=== PATIENT | female | born 1970 | race Caucasian/White ===

== ENCOUNTER 2016-07-10 00:22 | Emergency (ER) | payer MEDICAID ==
[2016-03-25 16:10] VITALS: BMI 32.3
[~2016-07-10 00:22] MED LIST: AMBIEN10 MG PO; BACTRIM DS TABL1 TAB PO; DIFLUCAN200 MG PO; EFFEXOR XR150 MG PO; GABAPENTIN100 MG PO; HYDROCODONE-APA1 TAB PO; IBUPROFEN600 MG PO; KLONOPIN1 MG PO; LITHIUM CARBON300 MG PO; LUNESTA3 MG PO; NEURONTIN 300300 MG PO; NEXIUM40 MG PO; NYSTATIN ORAL SU5 ML PO; OXYCODONE HCL5 MG PO; PERCOCET 5-3251 TAB PO; SEROQUEL300 MG PO; SOMA350 MG PO; VALIUM5 MG PO; ZANAFLEX4 MG PO
== END 2016-07-10 01:28 | disposition home or self-care (01) ==
LOC: D.ER 00:22
DX: R00.2 Palpitations (principal); R19.7 Diarrhea, unspecified; F31.9 Bipolar disorder, unspecified; D25.9 Leiomyoma of uterus, unspecified; F17.200 Nicotine dependence, unspecified, uncomplicated

== ENCOUNTER 2016-08-30 17:08 | Emergency (ER) | payer MEDICAID ==
[2016-03-25 16:10] VITALS: BMI 32.3
[2016-08-30 18:37] LABS: BASOPHILS 0.3 % (0.0-2.0); EOSINOPHILS 5.8 % (0-7); HEMATOCRIT 42.9 % (36.0-48.0); HEMOGLOBIN 13.9 g/dL (12-16); IMMATURE GRANULOCYTES 0.4 % (0-5); LYMPHOCYTES 31.4 % (15-50); MCH 28.3 pg (26.0-34.0); MCHC 32.4 g/dL (31.0-37.0); MCV 87.2 fL (80.0-100.0); MEAN PLATELET VOLUME 10.9 fL (7.4-10.4); MONOCYTES 6.7 % (2-11); NEUTROPHILS 55.4 % (40-80); PLATELET COUNT 203 10x3/uL (130-400); RBC 4.92 10x6/uL (4.00-5.40); RDW 13.9 % (11.5-14.5)
[2016-08-30 18:52] LABS: ALBUMIN 3.2 g/dL (3.4-5.0); ALKALINE PHOSPHATASE 95 U/L (46-116); ALT (SGPT) 44 U/L (10-68); CALC OSMOLALITY 279 mosm/kg (275-300); CALCIUM 8.2 mg/dL (8.5-10.1); CARBON DIOXIDE 23.8 mmol/L (21.0-32.0); CHLORIDE - SERUM 108 mmol/L (98-107); CREATININE - SERUM 0.8 mg/dL (0.6-1.3); GLUCOSE 123 mg/dL (74-106); POTASSIUM - SERUM 4.7 mmol/L (3.5-5.1); PROTEIN - SERUM 6.7 g/dL (6.4-8.2); SODIUM 141 mmol/L (136-145); UREA NITROGEN 6 mg/dL (7-18); eGFR NON AFRICAN AMERICAN 82 mL/min (90-120)
[2016-08-30 18:53] LABS: BILIRUBIN - TOTAL 0.09 mg/dL (0.2-1.3)
[2016-08-30 20:24] LABS: APPEARANCE CLEAR (CLEAR); BILIRUBIN NEGATIVE (NEGATIVE); COLOR YELLOW (YELLOW); GLUCOSE NEGATIVE (NEGATIVE); KETONE NEGATIVE (NEGATIVE); LEUKOCYTE ESTERASE NEGATIVE (NEGATIVE); NITRITE NEGATIVE (NEGATIVE); PROTEIN NEGATIVE (NEGATIVE); UROBILINOGEN NORMAL (NORMAL)
== END 2016-08-30 20:15 | disposition home or self-care (01) ==
LOC: D.ER 17:08
PROVIDERS: Emergency Medicine
DX: R10.9 Unspecified abdominal pain (principal); R19.7 Diarrhea, unspecified; F31.9 Bipolar disorder, unspecified; K51.90 Ulcerative colitis, unspecified, without complications; D25.9 Leiomyoma of uterus, unspecified; F17.200 Nicotine dependence, unspecified, uncomplicated

== ENCOUNTER → 2016-09-10 10:26 | Outpatient (CLI) | payer MEDICAID ==
[2016-03-25 16:10] VITALS: BMI 32.3
== END | disposition home or self-care (01) ==
LOC: D.US 10:26
DX: R10.84 Generalized abdominal pain (principal); R19.7 Diarrhea, unspecified

== ENCOUNTER → 2016-10-22 14:55 | Outpatient (CLI) | payer MEDICAID ==
[2016-03-25 16:10] VITALS: BMI 32.3
[2016-10-22 15:53] LABS: ALBUMIN 3.6 g/dL (3.4-5.0); BILIRUBIN - INDIRECT 0.17 mg/dL (0.00-1.00); BILIRUBIN - TOTAL 0.22 mg/dL (0.2-1.3); PROTEIN - SERUM 7.1 g/dL (6.4-8.2)
[2016-10-22 15:56] LABS: BILIRUBIN - DIRECT 0.05 mg/dL (0.00-0.30)
== END | disposition home or self-care (01) ==
LOC: D.LAB 14:55
PROVIDERS: Internal Medicine Gastroenterology
DX: R11.2 Nausea with vomiting, unspecified (principal); R10.84 Generalized abdominal pain; R19.7 Diarrhea, unspecified; R19.5 Other fecal abnormalities

== ENCOUNTER → 2016-11-26 10:59 | Outpatient (CLI) | payer MEDICAID ==
[2016-03-25 16:10] VITALS: BMI 32.3
== END | disposition home or self-care (01) ==
LOC: D.NM 10:59
DX: R14.3 Flatulence (principal); R14.0 Abdominal distension (gaseous)

== ENCOUNTER 2016-12-11 06:10 | Day surgery (SDC) | payer MEDICAID ==
[2016-12-10 10:49] LABS: HEMATOCRIT 42.2 % (36.0-48.0); HEMOGLOBIN 13.7 g/dL (12-16); MCH 28.2 pg (26.0-34.0); MCHC 32.5 g/dL (31.0-37.0); RBC 4.85 10x6/uL (4.00-5.40); RDW 13.9 % (11.5-14.5); WBC 9.8 10x3/uL (4.8-10.8)
[2016-12-10 10:54] LABS: ANION GAP 12.4 mmol/L (8-16); CALCIUM 8.5 mg/dL (8.5-10.1); CARBON DIOXIDE 26.5 mmol/L (21.0-32.0); CREATININE - SERUM 0.9 mg/dL (0.6-1.3); POTASSIUM - SERUM 4.9 mmol/L (3.5-5.1)
[~2016-12-11] VITALS: Ht 167.6 cm; Wt 83.0 kg
[~2016-12-11 06:10] MED LIST changes: +LEVOTHYROXINE50 MCG PO; -SEROQUEL300 MG PO; +SEROQUEL400 MG PO
[2016-12-11 08:00] VITALS: BP 107/79; Ht 167.6 cm; Wt 83.0 kg
[2016-12-11] MEDS ORDERED: HYDROCODON-ACE1 EAC7 PO (11:30)
== END 2016-12-11 15:45 | disposition home or self-care (01) ==
LOC: D.OPS 06:10 → D.PAN 10:45 → D.OPS 15:45
PROVIDERS: Anesthesiology
DX: K81.1 Chronic cholecystitis (principal); Z01.812 Encounter for preprocedural laboratory examination

== ENCOUNTER → 2017-04-01 08:26 | Outpatient (CLI) | payer MEDICAID ==
[2016-12-11 08:00] VITALS: BMI 29.6
[~2017-04-01 08:26] MED LIST changes: +HYDROCODON-ACE1 EAC7 PO
== END | disposition home or self-care (01) ==
LOC: D.RAD 08:26
DX: R10.9 Unspecified abdominal pain (principal); R19.7 Diarrhea, unspecified; K31.84 Gastroparesis

== ENCOUNTER → 2017-06-05 08:01 | Outpatient (CLI) | payer MEDICAID ==
[2016-12-11 08:00] VITALS: BMI 29.6
[2017-06-05 08:49] LABS: ALBUMIN 3.3 g/dL (3.4-5.0); BILIRUBIN - DIRECT 0.02 mg/dL (0.00-0.30); BILIRUBIN - INDIRECT 0.12 mg/dL (0.00-1.00); BILIRUBIN - TOTAL 0.14 mg/dL (0.2-1.3); PROTEIN - SERUM 6.4 g/dL (6.4-8.2)
== END | disposition home or self-care (01) ==
LOC: D.LAB 08:01
PROVIDERS: Internal Medicine Gastroenterology
DX: R19.7 Diarrhea, unspecified (principal)

== ENCOUNTER → 2017-06-10 08:12 | Outpatient (CLI) | payer MEDICAID ==
[2016-12-11 08:00] VITALS: BMI 29.6
[2017-06-13 19:11] LABS: 5HIAA - 24HR 3.4 mg/24 hr (0.0-14.9); 5HIAA - UR 5.4 mg/L (Undefined)
== END | disposition home or self-care (01) ==
LOC: D.LABREF 08:12
PROVIDERS: Internal Medicine Gastroenterology
DX: R19.7 Diarrhea, unspecified (principal)

== ENCOUNTER → 2017-06-17 09:38 | Outpatient (CLI) | payer MEDICAID ==
[2016-12-11 08:00] VITALS: BMI 29.6
== END | disposition home or self-care (01) ==
LOC: D.NM 09:38
DX: R19.7 Diarrhea, unspecified (principal)

== ENCOUNTER 2017-09-15 06:33 | Day surgery (SDC) | payer MEDICAID ==
[~2017-09-15] VITALS: Ht 167.6 cm; Wt 76.2 kg
[2017-09-15 07:23] VITALS: BP 121/50; Ht 167.6 cm; Wt 76.2 kg
[2017-09-15 07:55] LABS: HEMATOCRIT 39.6 % (36.0-48.0); HEMOGLOBIN 12.9 g/dL (12-16); MCH 28.9 pg (26.0-34.0); MCHC 32.6 g/dL (31.0-37.0); MCV 88.8 fL (80.0-100.0); MEAN PLATELET VOLUME 10.5 fL (7.4-10.4); RBC 4.46 10x6/uL (4.00-5.40); RDW 13.8 % (11.5-14.5); WBC 7.2 10x3/uL (4.8-10.8)
[2017-09-15 08:24] LABS: CALC OSMOLALITY 281 mosm/kg (275-300); CALCIUM 8.5 mg/dL (8.5-10.1); CARBON DIOXIDE 26.6 mmol/L (21.0-32.0); CHLORIDE - SERUM 107 mmol/L (98-107); CREATININE - SERUM 0.8 mg/dL (0.6-1.3); GLUCOSE 94 mg/dL (74-106); SODIUM 142 mmol/L (136-145); UREA NITROGEN 11 mg/dL (7-18); eGFR NON AFRICAN AMERICAN 82 mL/min (90-120)
[2017-09-15] MEDS ORDERED: CYCLOBENZAPRINE10 MG PO (09:10)
[2017-09-15] MEDS ORDERED: HYDROCODON-ACE1 EAC7 PO (09:10)
== END 2017-09-15 11:20 | disposition home or self-care (01) ==
LOC: D.OPS 06:33 → D.PAN 08:00 → D.OPS 08:15 → D.PAN 08:30 → D.OPS 11:20
PROVIDERS: Anesthesiology
DX: K43.2 Incisional hernia without obstruction or gangrene (principal); E03.9 Hypothyroidism, unspecified; F17.200 Nicotine dependence, unspecified, uncomplicated; R10.9 Unspecified abdominal pain; Z01.812 Encounter for preprocedural laboratory examination

== ENCOUNTER 2017-12-18 13:19 | Day surgery (SDC) | payer MEDICAID ==
[~2017-12-18] VITALS: Ht 167.6 cm; Wt 72.7 kg
--- NOTE | ~2017-12-18 | OP ---
PATIENT NAME: KJ MONTES MEDICAL RECORD: [id number] :74 LOCATION:[facility] ADMISSION DATE: SURGEON: ANDRES BAR MD DATE OF OPERATION: 12/18/2017 PROCEDURE: EGD with fecal microbial transplant. INDICATIONS: Ms. Montes is a very pleasant 47-year-old woman with history of chronic pancreatitis and chronic diarrhea. She has had an extensive workup for her diarrhea in the past including 24-hour urine collection for 5'HIAA, octreotide scan, EGD, colonoscopy, small bowel series; all of which have been nondiagnostic, negative. She has been on a trial of Creon without any changes in her diarrhea. She has had extensive weight loss. She presents for outpatient fecal microbial transplant. PREMEDICATIONS: Total IV anesthesia (propofol 300 mg), bipolar disorder. INSTRUMENT: Olympus video colonoscope, pediatric. PROCEDURE AND FINDINGS: After receiving informed consent, Ms. Montes's posterior pharynx was anesthetized with Cetacaine spray. She was placed in left lateral decubitus position and sedated as per anesthesia. After achieving an adequate level of sedation, the colonoscope was introduced per orally and advanced into the jejunum without difficulty. At 110 cm, 60 cc of fecal transplant material was deployed and then three 60 cc water flushes followed. The colonoscope was withdrawn. The esophageal, gastric, and duodenojejunal mucosa appeared normal. Ms. Montes tolerated the procedure well. No immediate complications. ASSESSMENT: 1. Normal-appearing esophagus, stomach, and proximal small bowel. 2. Post-fecal microbial transplant. 3. Chronic diarrhea. RECOMMENDATIONS: 1. Avoid antibiotic therapy in the next 6 months unless absolutely needed. 2. Probiotics. TRANSINT:[id number] Voice Confirmation ID: [id number] DOCUMENT ID: [id number] CC: Kaitlyn Martínez APN, [facility]. ANDRES BAR MD at 1832 CC: [id number] DICTATION DATE: 12/18/17 1613 SYSTEMS DESIGNER: 12/18/17 1638 [facility] 12/18/17 [place] [id number]
[~2017-12-18 13:19] MED LIST changes: +CYCLOBENZAPRINE10 MG PO
[2017-12-18 14:00] LABS: HEMATOCRIT 48.7 % (36.0-48.0); HEMOGLOBIN 16.5 g/dL (12-16); MCH 29.2 pg (26.0-34.0); MCHC 33.9 g/dL (31.0-37.0); MEAN PLATELET VOLUME 10.9 fL (7.4-10.4); RBC 5.66 10x6/uL (4.00-5.40); RDW 13.5 % (11.5-14.5); WBC 10.9 10x3/uL (4.8-10.8)
[2017-12-18 14:15] VITALS: BP 104/79; Ht 167.6 cm; Wt 72.7 kg
[2017-12-18 14:25] LABS: ANION GAP 9.1 mmol/L (8-16); CALCIUM 8.5 mg/dL (8.5-10.1); CREATININE - SERUM 0.9 mg/dL (0.6-1.3); POTASSIUM - SERUM 4.1 mmol/L (3.5-5.1)
== END 2017-12-18 16:41 | disposition home or self-care (01) ==
LOC: D.OPS 13:19
PROVIDERS: Internal Medicine Gastroenterology
DX: K52.9 Noninfective gastroenteritis and colitis, unspecified (principal); E11.9 Type 2 diabetes mellitus without complications; F17.200 Nicotine dependence, unspecified, uncomplicated
CPT/HCPCS: 43235; G0455

== ENCOUNTER → 2018-01-09 08:22 | Outpatient (CLI) | payer MEDICAID ==
[2017-12-18 14:15] VITALS: BMI 25.8
[~2018-01-09 08:22] MED LIST changes: +CIPRO500 MG PO; +DILAUDID4 MG PO; +FLOMAX0.4 MG PO; +NORCO 5/325 TAB1 TAB PO; +TYLENOL W/CODEI1 TAB PO; +ZOFRAN ODT4 MG/UDTAB PO
[2018-01-12 12:12] LABS: ANTIGLIADIN IGA 16 units (0-19); ANTIGLIADIN IGG 2 units (0-19)
[2018-01-13 06:16] LABS: ENDOMYSIAL ANTIBODY IGA Negative (Negative)
[2018-01-15 20:08] LABS: OVA + PARASITE EXAM Final report (())
== END | disposition home or self-care (01) ==
LOC: D.LAB 08:22 → D.CT 16:30
PROVIDERS: Internal Medicine Gastroenterology
DX: R10.9 Unspecified abdominal pain (principal); R19.7 Diarrhea, unspecified

== ENCOUNTER 2018-01-28 13:32 | Emergency (ER) | payer MEDICAID ==
[~2018-01-28] VITALS: Ht 167.6 cm; Wt 77.3 kg
[~2018-01-28 13:32] MED LIST changes: -CIPRO500 MG PO; -DILAUDID4 MG PO; -FLOMAX0.4 MG PO; -NORCO 5/325 TAB1 TAB PO; -TYLENOL W/CODEI1 TAB PO; -ZOFRAN ODT4 MG/UDTAB PO
[2018-01-28 13:49] VITALS: Ht 167.6 cm; Wt 77.3 kg
[2018-01-28 14:20] LABS: BASOPHILS 0.4 % (0-2); HEMATOCRIT 40.5 % (36.0-48.0); HEMOGLOBIN 13.6 g/dL (12-16); IMMATURE GRANULOCYTES 0.3 % (0-5); LYMPHOCYTES 17.5 % (15-50); MCH 29.2 pg (26.0-34.0); MCHC 33.6 g/dL (31.0-37.0); MCV 86.9 fL (80.0-100.0); MEAN PLATELET VOLUME 10.4 fL (7.4-10.4); MONOCYTES 7.9 % (2-11); NEUTROPHILS 70.9 % (40-80); PLATELET COUNT 235 10x3/uL (130-400); RBC 4.66 10x6/uL (4.00-5.40); RDW 14.5 % (11.5-14.5); WBC 10.9 10x3/uL (4.8-10.8)
[2018-01-28 14:35] LABS: ALBUMIN 2.9 g/dL (3.4-5.0); ANION GAP 12.6 mmol/L (8-16); CALCIUM 7.9 mg/dL (8.5-10.1); CARBON DIOXIDE 24.6 mmol/L (21.0-32.0); CREATININE - SERUM 1.3 mg/dL (0.6-1.3); POTASSIUM - SERUM 4.2 mmol/L (3.5-5.1); PROTEIN - SERUM 6.3 g/dL (6.4-8.2)
[2018-01-28 14:36] LABS: BILIRUBIN - TOTAL 0.1 mg/dL (0.2-1.3)
[2018-01-28 15:07] LABS: APPEARANCE HAZY (CLEAR); BILIRUBIN NEGATIVE (NEGATIVE); COLOR YELLOW (YELLOW); GLUCOSE NEGATIVE (NEGATIVE); KETONE NEGATIVE (NEGATIVE); NITRITE NEGATIVE (NEGATIVE); PROTEIN NEGATIVE (NEGATIVE); UROBILINOGEN NORMAL (NORMAL)
[2018-01-28 15:09] LABS: RED CELLS - URINE 0-5 /hpf (0-5); WHITE CELLS - URINE 0-5 /hpf (0-5)
[2018-01-28 15:11] LABS: BACTERIA MODERATE /hpf (NONE SEEN)
[2018-01-28] MEDS ORDERED: ZOFRAN ODT4 MG/UDTAB PO (17:21)
[2018-01-28] MEDS ORDERED: CIPRO500 MG PO (17:21)
[2018-01-28] MEDS ORDERED: TYLENOL W/CODEI1 TAB PO (17:21)
[2018-01-28] MEDS ORDERED: FLOMAX0.4 MG PO (17:21)
[2018-01-28 17:38] VITALS: BP 125/88
== END 2018-01-28 17:41 | disposition home or self-care (01) ==
LOC: D.ER 13:32
PROVIDERS: Family Medicine
DX: N20.0 Calculus of kidney (principal); N23 Unspecified renal colic; N39.0 Urinary tract infection, site not specified

== ENCOUNTER 2018-02-05 16:03 | Emergency (ER) | payer MEDICAID ==
[~2018-02-05] VITALS: Ht 167.6 cm; Wt 77.3 kg
[~2018-02-05 16:03] MED LIST changes: +CIPRO500 MG PO; +FLOMAX0.4 MG PO; +TYLENOL W/CODEI1 TAB PO; +ZOFRAN ODT4 MG/UDTAB PO
[2018-02-05 16:11] VITALS: Ht 167.6 cm; Wt 77.3 kg
[2018-02-05 16:45] LABS: BASOPHILS 0.7 % (0-2); EOSINOPHILS 4.8 % (0-7); HEMATOCRIT 42.1 % (36.0-48.0); HEMOGLOBIN 14.5 g/dL (12-16); IMMATURE GRANULOCYTES 0.2 % (0-5); LYMPHOCYTES 35.7 % (15-50); MCH 29.5 pg (26.0-34.0); MCHC 34.4 g/dL (31.0-37.0); MCV 85.7 fL (80.0-100.0); MEAN PLATELET VOLUME 10.3 fL (7.4-10.4); MONOCYTES 5.7 % (2-11); NEUTROPHILS 52.9 % (40-80); PLATELET COUNT 264 10x3/uL (130-400); RBC 4.91 10x6/uL (4.00-5.40); RDW 14.2 % (11.5-14.5); WBC 10.4 10x3/uL (4.8-10.8)
[2018-02-05 16:57] LABS: ALBUMIN 2.7 g/dL (3.4-5.0); ANION GAP 14.2 mmol/L (8-16); CALCIUM 8.2 mg/dL (8.5-10.1); CARBON DIOXIDE 22.2 mmol/L (21.0-32.0); POTASSIUM - SERUM 4.4 mmol/L (3.5-5.1); PROTEIN - SERUM 5.5 g/dL (6.4-8.2)
[2018-02-05 17:05] LABS: BILIRUBIN - TOTAL 0.09 mg/dL (0.2-1.3)
[2018-02-05 18:14] LABS: APPEARANCE HAZY (CLEAR); BILIRUBIN NEGATIVE (NEGATIVE); COLOR YELLOW (YELLOW); GLUCOSE NEGATIVE (NEGATIVE); KETONE NEGATIVE (NEGATIVE); NITRITE NEGATIVE (NEGATIVE); PROTEIN NEGATIVE (NEGATIVE); SPECIFIC GRAVITY 1.025 (1.005-1.020); UROBILINOGEN NORMAL (NORMAL)
[2018-02-05 18:16] LABS: RED CELLS - URINE 0-5 /hpf (0-5)
[2018-02-05 18:19] LABS: BACTERIA MANY /hpf (NONE SEEN)
[2018-02-05] MEDS ORDERED: NORCO 5/325 TAB1 TAB PO (19:15)
[2018-02-05 20:10] VITALS: BP 140/75
== END 2018-02-05 20:10 | disposition home or self-care (01) ==
LOC: D.ER 16:03
PROVIDERS: Family Medicine
DX: N20.1 Calculus of ureter (principal); F17.200 Nicotine dependence, unspecified, uncomplicated

== ENCOUNTER 2018-02-10 07:49 | Emergency (ER) | payer MEDICAID ==
[~2018-02-10] VITALS: Ht 167.6 cm; Wt 77.3 kg
[~2018-02-10 07:49] MED LIST changes: +NORCO 5/325 TAB1 TAB PO
[2018-02-10 07:56] VITALS: Ht 167.6 cm; Wt 77.3 kg
[2018-02-10 08:19] LABS: BASOPHILS 0.6 % (0-2); EOSINOPHILS 4.5 % (0-7); HEMOGLOBIN 13.3 g/dL (12-16); IMMATURE GRANULOCYTES 0.2 % (0-5); LYMPHOCYTES 22.7 % (15-50); MCH 29.6 pg (26.0-34.0); MCHC 34.1 g/dL (31.0-37.0); MCV 86.7 fL (80.0-100.0); PLATELET COUNT 287 10x3/uL (130-400); RDW 14.8 % (11.5-14.5); WBC 8.6 10x3/uL (4.8-10.8)
[2018-02-10 08:23] LABS: APPEARANCE CLEAR (CLEAR); BILIRUBIN NEGATIVE (NEGATIVE); COLOR YELLOW (YELLOW); GLUCOSE NEGATIVE (NEGATIVE); KETONE NEGATIVE (NEGATIVE); NITRITE NEGATIVE (NEGATIVE); PROTEIN NEGATIVE (NEGATIVE); SPECIFIC GRAVITY 1.025 (1.005-1.020); UROBILINOGEN NORMAL (NORMAL)
[2018-02-10 08:31] LABS: RED CELLS - URINE 0-5 /hpf (0-5)
[2018-02-10 08:32] LABS: BACTERIA MODERATE /hpf (NONE SEEN); EPITHELIAL CELLS 0-5 /hpf (0-5)
[2018-02-10 08:40] LABS: ALBUMIN 3.1 g/dL (3.4-5.0); ANION GAP 10.5 mmol/L (8-16); BILIRUBIN - TOTAL 0.16 mg/dL (0.2-1.3); CALCIUM 8.6 mg/dL (8.5-10.1); CARBON DIOXIDE 27.3 mmol/L (21.0-32.0); CREATININE - SERUM 0.9 mg/dL (0.6-1.3); POTASSIUM - SERUM 3.8 mmol/L (3.5-5.1); PROTEIN - SERUM 6.4 g/dL (6.4-8.2)
[2018-02-10] MEDS ORDERED: DILAUDID4 MG PO (08:43)
[2018-02-10 09:20] VITALS: BP 119/77
== END 2018-02-10 09:20 | disposition home or self-care (01) ==
LOC: D.ER 07:49
PROVIDERS: Emergency Medicine
DX: N23 Unspecified renal colic (principal); F17.200 Nicotine dependence, unspecified, uncomplicated

== ENCOUNTER 2018-06-14 14:21 | Observation (INO) | payer MEDICAID ==
[~2018-06-14] VITALS: Ht 167.6 cm; Wt 77.1 kg
[~2018-06-14 14:21] MED LIST changes: +DILAUDID4 MG PO
[2018-06-14] MEDS ORDERED: CHOLESTEROL MED (14:29)
[2018-06-14 15:20] LABS: BASOPHILS 0.2 % (0-2); HEMATOCRIT 41.6 % (36.0-48.0); HEMOGLOBIN 14.1 g/dL (12-16); IMMATURE GRANULOCYTES 0.2 % (0-5); LYMPHOCYTES 18.8 % (15-50); MCH 29.8 pg (26.0-34.0); MCHC 33.9 g/dL (31.0-37.0); MCV 87.9 fL (80.0-100.0); MEAN PLATELET VOLUME 10.2 fL (7.4-10.4); MONOCYTES 5.1 % (2-11); NEUTROPHILS 73.7 % (40-80); RBC 4.73 10x6/uL (4.00-5.40); RDW 12.8 % (11.5-14.5); WBC 12.7 10x3/uL (4.8-10.8)
[2018-06-14 15:32] LABS: PLATELET COUNT 202 10x3/uL (130-400)
[2018-06-14 15:34] LABS: ALBUMIN 3.2 g/dL (3.4-5.0); ALKALINE PHOSPHATASE 91 U/L (46-116); ALT (SGPT) 31 U/L (10-68); BILIRUBIN - TOTAL 0.15 mg/dL (0.2-1.3); CALC OSMOLALITY 276 mosm/kg (275-300); CALCIUM 8.9 mg/dL (8.5-10.1); CARBON DIOXIDE 30.8 mmol/L (21.0-32.0); CHLORIDE - SERUM 102 mmol/L (98-107); CREATININE - SERUM 0.9 mg/dL (0.6-1.3); GLUCOSE 100 mg/dL (74-106); POTASSIUM - SERUM 4.3 mmol/L (3.5-5.1); PROTEIN - SERUM 6.3 g/dL (6.4-8.2); SODIUM 139 mmol/L (136-145); UREA NITROGEN 9 mg/dL (7-18); eGFR NON AFRICAN AMERICAN 71 mL/min (90-120)
[2018-06-14 15:46] LABS: CKMB 0.5 U/L (0.0-3.6); CREATINE KINASE 70 UL (21-215); PRO BNP 11 pg/mL (0-125)
[2018-06-14 15:54] LABS: INR 1.01 (0.85-1.17); PROTIME 12.8 SECONDS (11.6-15.0)
[2018-06-14 15:55] LABS: APTT 31.7 SECONDS (22.8-39.4)
[2018-06-14 15:56] LABS: D-DIMER-QUANTITATIVE 0.57 ug/mLFEU (0.20-0.54); TROPONIN-I < 0.017 ng/mL (0.000-0.060)
[2018-06-14 19:05] LABS: AMYLASE - SERUM 39 U/L (25-115); LIPASE 168 U/L (73-393)
[2018-06-14 19:50] VITALS: BP 117/80
--- NOTE | 2018-06-14 20:29 | NUR ---
ZOSYN INFUSION STOPPED.
--- NOTE | 2018-06-14 20:40 | NUR ---
PT LEFT ED VIA WC AT THIS TIME.
[2018-06-14 20:59] VITALS: BP 132/84
[2018-06-15] VITALS (8 sets, daily range): BP systolic 92–121; BP diastolic 52–76; Ht 167.6 cm; Wt 77.1 kg
--- NOTE | 2018-06-15 06:01 | NUR ---
PT REQUESTS PAIN MEDS, HOWEVER LAST TWO BP CHECKS WERE LOW ENOUGH THAT MEDS WERE HELD. WILL CONTINUE TO MONITOR BP. WILL CONTINUE POC.
--- NOTE | 2018-06-15 06:12 | NUR ---
ARTIFICIAL CHERRY MAKER DOING ROUNDS. INFORMED HER OF LOW BP. SHE ORDERED 500ML BOLUS. WILL CONTINUE POC.
[2018-06-15 07:47] LABS: BASOPHILS 0.4 % (0-2); HEMATOCRIT 41.3 % (36.0-48.0); HEMOGLOBIN 13.7 g/dL (12-16); IMMATURE GRANULOCYTES 0.3 % (0-5); LYMPHOCYTES 18.3 % (15-50); MCH 29.7 pg (26.0-34.0); MCHC 33.2 g/dL (31.0-37.0); MCV 89.4 fL (80.0-100.0); MEAN PLATELET VOLUME 10.6 fL (7.4-10.4); MONOCYTES 10.2 % (2-11); NEUTROPHILS 67.8 % (40-80); PLATELET COUNT 210 10x3/uL (130-400); RBC 4.62 10x6/uL (4.00-5.40)
[2018-06-15 07:56] LABS: WBC 7.1 10x3/uL (4.8-10.8)
[2018-06-15 07:58] LABS: APTT 31.1 SECONDS (22.8-39.4); PROTIME 12.7 SECONDS (11.6-15.0)
[2018-06-15 08:23] LABS: ALBUMIN 2.9 g/dL (3.4-5.0); ALKALINE PHOSPHATASE 201 U/L (46-116); BILIRUBIN - TOTAL 0.49 mg/dL (0.2-1.3); CALC OSMOLALITY 276 mosm/kg (275-300); CALCIUM 8.1 mg/dL (8.5-10.1); CHLORIDE - SERUM 102 mmol/L (98-107); CKMB 0.7 U/L (0.0-3.6); CREATINE KINASE 72 UL (21-215); GLUCOSE 106 mg/dL (74-106); POTASSIUM - SERUM 4.4 mmol/L (3.5-5.1); PROTEIN - SERUM 6.2 g/dL (6.4-8.2); SODIUM 139 mmol/L (136-145); UREA NITROGEN 11 mg/dL (7-18); eGFR NON AFRICAN AMERICAN 63 mL/min (90-120)
[2018-06-15 08:24] LABS: ALT (SGPT) 329 U/L (10-68); TROPONIN-I < 0.017 ng/mL (0.000-0.060)
--- NOTE | 2018-06-15 08:56 | NUR ---
DILAUDID 1 MG IVP GIVEN FOR LEVEL #10 UPPER LEFT CHEST STABBING PAIN.
--- NOTE | 2018-06-15 16:25 | NUR ---
RATIONALE FOR SCD'S EXPLAINED. REFUSED SCD'S
--- NOTE | 2018-06-15 16:36 | NUR ---
DILAUDID 1 MG IVP GIVEN FOR LEVEL #10 PAIN.
--- NOTE | 2018-06-15 19:02 | NUR ---
PATIENT RESTING IN BED. MEDICATED FOR C/O PAIN. NO OTHER REQUESTS AT THIS TIME. BED IS DOWN LOW WITH SIDE RAILS UP X2. CALL LIGHT IS IN REACH. FAMILY MEMBER AT BEDSIDE.
[2018-06-16 01:32] VITALS: BP 108/63
[2018-06-16 04:00] VITALS: BP 109/63
[2018-06-16 06:59] LABS: BASOPHILS 0.5 % (0-2); EOSINOPHILS 5.9 % (0-7); HEMATOCRIT 37.8 % (36.0-48.0); HEMOGLOBIN 12.4 g/dL (12-16); IMMATURE GRANULOCYTES 0.2 % (0-5); LYMPHOCYTES 30.8 % (15-50); MCH 29.4 pg (26.0-34.0); MCHC 32.8 g/dL (31.0-37.0); MCV 89.6 fL (80.0-100.0); MEAN PLATELET VOLUME 10.7 fL (7.4-10.4); MONOCYTES 10.1 % (2-11); NEUTROPHILS 52.5 % (40-80); PLATELET COUNT 187 10x3/uL (130-400); RBC 4.22 10x6/uL (4.00-5.40); RDW 12.9 % (11.5-14.5); WBC 5.8 10x3/uL (4.8-10.8)
[2018-06-16 07:03] LABS: ANION GAP 10.8 mmol/L (8-16); CALCIUM 7.6 mg/dL (8.5-10.1); CARBON DIOXIDE 28.8 mmol/L (21.0-32.0); CREATININE - SERUM 0.9 mg/dL (0.6-1.3)
[2018-06-16 07:06] LABS: POTASSIUM - SERUM 3.6 mmol/L (3.5-5.1)
[2018-06-16 08:32] VITALS: BP 113/94
[2018-06-16] MEDS ORDERED: PROTONIX40 MG PO (09:03)
[2018-06-16] MEDS ORDERED: BACTRIM DS1 TAB PO (09:03)
[2018-06-16] MEDS ORDERED: IBUPROFEN600 MG PO (09:03)
[2018-06-16 10:05] LABS: APPEARANCE CLEAR (CLEAR); BILIRUBIN NEGATIVE (NEGATIVE); COLOR YELLOW (YELLOW); GLUCOSE NEGATIVE (NEGATIVE); KETONE SMALL mg/dL (NEGATIVE); NITRITE NEGATIVE (NEGATIVE); PROTEIN NEGATIVE (NEGATIVE); SPECIFIC GRAVITY 1.015 (1.005-1.020); UROBILINOGEN NORMAL (NORMAL)
--- NOTE | 2018-06-16 11:48 | NUR ---
PATIENT AMBULATING IN ROOM, SKIN W/D TO TOUCH, COLOR PINK, RESP. REGULAR AND EVEN AT 18.IV LEFT FOREARM NORMAL SALINE INFUSING AT 10, WITHOUT REDNESS OR SWELLING. DAUGHTER AT BEDSIDE. PATIENT RECEIVED DISCHARGE PAPER AND VERBALIZED UNDERSTANDING OF DISCHARGE INSTRUCTION. ALL BELONGINGS SENT AND PATIENT DISCHARGED VIA PRIVATE CAR. IV REMOVED PRIOR TO DISCHARGE.
== END 2018-06-16 11:56 | disposition home or self-care (01) ==
LOC: D.ER 14:21 → D.M3 19:18 → D.EDHOLD 19:18 → OBSVTIME 19:20 → D.M3 19:58
PROVIDERS: Family Medicine; ADMIT Internal Medicine Nephrology
DX: J90 Pleural effusion, not elsewhere classified (principal); R74.0 Nonspecific elevation of levels of transaminase and lactic acid dehydrogenase [LDH]; E03.9 Hypothyroidism, unspecified; K21.9 Gastro-esophageal reflux disease without esophagitis; F41.9 Anxiety disorder, unspecified; F31.9 Bipolar disorder, unspecified; F17.213 Nicotine dependence, cigarettes, with withdrawal

== ENCOUNTER → 2018-07-14 08:50 | Outpatient (CLI) | payer MEDICAID ==
[2018-06-15 15:49] VITALS: BMI 27.4
[~2018-07-14 08:50] MED LIST changes: +BACTRIM DS1 TAB PO; +CHOLESTEROL MED; +PROTONIX40 MG PO
[2018-07-14 10:09] LABS: ALBUMIN 3.3 g/dL (3.4-5.0); BILIRUBIN - DIRECT 0.06 mg/dL (0.00-0.30); BILIRUBIN - INDIRECT 0.17 mg/dL (0.00-1.00); BILIRUBIN - TOTAL 0.23 mg/dL (0.2-1.3); PROTEIN - SERUM 6.6 g/dL (6.4-8.2)
== END | disposition home or self-care (01) ==
LOC: D.LAB 08:00 → D.US 09:00
PROVIDERS: ATTEND Internal Medicine Gastroenterology
DX: K76.0 Fatty (change of) liver, not elsewhere classified (principal)

== ENCOUNTER 2018-07-20 16:49 | Emergency (ER) | payer MEDICAID ==
[~2018-07-20] VITALS: Ht 167.6 cm; Wt 77.3 kg
[2018-07-20 17:10] VITALS: Ht 167.6 cm; Wt 77.3 kg
[2018-07-20 17:41] LABS: BASOPHILS 0.3 % (0-2); EOSINOPHILS 2.1 % (0-7); HEMATOCRIT 43.2 % (36.0-48.0); HEMOGLOBIN 14.9 g/dL (12-16); IMMATURE GRANULOCYTES 0.3 % (0-5); LYMPHOCYTES 24.6 % (15-50); MCH 30.6 pg (26.0-34.0); MCHC 34.5 g/dL (31.0-37.0); MCV 88.7 fL (80.0-100.0); MEAN PLATELET VOLUME 10.3 fL (7.4-10.4); MONOCYTES 5.1 % (2-11); NEUTROPHILS 67.6 % (40-80); RBC 4.87 10x6/uL (4.00-5.40); RDW 13.6 % (11.5-14.5); WBC 10.5 10x3/uL (4.8-10.8)
[2018-07-20 17:45] LABS: PLATELET COUNT 251 10x3/uL (130-400)
[2018-07-20 17:54] LABS: APPEARANCE CLEAR (CLEAR); BILIRUBIN NEGATIVE (NEGATIVE); COLOR YELLOW (YELLOW); GLUCOSE NEGATIVE (NEGATIVE); KETONE NEGATIVE (NEGATIVE); NITRITE NEGATIVE (NEGATIVE); PROTEIN NEGATIVE (NEGATIVE); UROBILINOGEN NORMAL (NORMAL)
[2018-07-20 18:00] LABS: ALBUMIN 3.5 g/dL (3.4-5.0); ANION GAP 15.6 mmol/L (8-16); BILIRUBIN - TOTAL 0.22 mg/dL (0.2-1.3); CALCIUM 8.9 mg/dL (8.5-10.1); CARBON DIOXIDE 25.5 mmol/L (21.0-32.0); POTASSIUM - SERUM 4.1 mmol/L (3.5-5.1); PROTEIN - SERUM 6.9 g/dL (6.4-8.2)
[2018-07-20 18:01] LABS: HCG SERUM NEGATIVE (NEGATIVE)
[2018-07-20] MEDS ORDERED: ZOFRAN8 MG PO (20:19)
[2018-07-20 20:55] VITALS: BP 135/71
== END 2018-07-20 20:55 | disposition home or self-care (01) ==
LOC: D.ER 16:49
PROVIDERS: Emergency Medicine
DX: R10.13 Epigastric pain (principal)

== ENCOUNTER → 2018-11-30 08:00 | Outpatient (CLI) | payer MEDICAID ==
[2018-07-20 17:10] VITALS: BMI 27.5
[~2018-11-30 08:00] MED LIST changes: +ZOFRAN8 MG PO
== END | disposition home or self-care (01) ==
LOC: D.MAMMO 08:00
PROVIDERS: ATTEND Nurse Practitioner Family
DX: Z12.31 Encounter for screening mammogram for malignant neoplasm of breast (principal)

== ENCOUNTER 2020-09-26 16:30 | Outpatient (CLI) | payer MEDICAID ==
[2018-07-20 17:10] VITALS: BMI 27.5
== END 2020-09-26 23:59 | disposition home or self-care (01) ==
LOC: D.MAMMO 16:30
PROVIDERS: ATTEND Family Medicine
DX: N63.15 Unspecified lump in the right breast, overlapping quadrants (principal)